=== PATIENT | female | born 1970 | race Caucasian/White ===

== ENCOUNTER 2018-09-26 12:14 | Inpatient (IN) | payer SELFPAY ==
[2018-09-26] MEDS ORDERED: ONDANSETRON 4 MG/2 ML VIAL IV PRN (13:59)
[2018-09-26] MEDS ORDERED: ACETAMINOPHEN 500 MG TAB PO PRN (13:59)
[2018-09-26 14:22] LABS: Absolute Monocytes 0.6 K/uL (0.1-1.3); Absolute Neutrophil 5.7 K/uL (1.8-8.0); Basophils % 0.5 % (0-1.3); Eosinophils % 0.6 % (0-4.4); Hematocrit 38.9 % (36.0-45.0); Lymphocytes % 24.1 % (15.3-44.8); MPV 7.9 fL (7.6-11.3); Monocytes % 7.4 % (3.3-12.3); Protime INR 1.11; RBC Red Blood Cell Count 4.19 M/uL (3.86-4.86)
[2018-09-26 14:35] LABS: Albumin 3.4 g/dL (3.4-5.0); Bilirubin Total 0.4 mg/dL (0.2-1.0); Potassium 3.8 mmol/L (3.5-5.1); Protein, Total 7.4 g/dL (6.4-8.2)
--- NOTE | 2018-09-26 14:38 | RAD REPORT ---
EXAM DESCRIPTION: RAD - Chest Pa And Lat (2 Views) - 09/26/2018 2:32 pm CLINICAL HISTORY: cough Chest pain. COMPARISON: No comparisons FINDINGS: The lungs are clear. The heart is normal in size. No displaced fractures. IMPRESSION: No acute or concerning finding suspected.
--- NOTE | 2018-09-26 14:42 | RAD REPORT ---
EXAM DESCRIPTION: CT - Stone Protocol - 09/26/2018 2:25 pm CLINICAL HISTORY: Flank pain. recurrent UTI, abd pain COMPARISON: No comparisons TECHNIQUE: Axial images were obtained without oral or IV contrast. Lack of contrast limits solid org an and vascular assessment. The [id number]-rl-[id number] spans the entirety of the system partially obscuring uppermost abdomen and lung bases. Coronal reformatted images were obtained and reviewed. All CT scans are performed using dose optimization technique as appropriate and may include automated exposure control or mA/KV adjustment according to patient size. FINDINGS: The lower lung beard are clear. Cholecystectomy clips. Imaged portions of the liver and spleen show no suspicious findings on non-contrast imaging. The panc reas and adrenal glands are normal. No pathologic lymphadenopathy in the abdomen or pelvis. No urinary tract stones or obstructive uropathy. No bowel obstruction, free air, free fluid or abscess. Normal appendix noted. No significant bony abnormality. IMPRESSION: No urinary tract stones or obstructive uropathy.
[2018-09-26] MEDS ORDERED: HYDROCODONE/APAP 7.5/325 MG TAB PO PRN (14:56)
[2018-09-26 15:16] LABS: Urine Appearance CLOUDY; Urine Bilirubin NEGATIVE (NEG); Urine Blood 1+ (NEG); Urine Color YELLOW; Urine Glucose NEGATIVE (NEG); Urine Protein NEGATIVE (NEG); Urine pH 7.5 (5.0-7.0)
[2018-09-26 15:18] LABS: Urine Microscopic Reflex ORDER UMIC
[2018-09-26 15:45] LABS: Urine Bacteria 20-50 /HPF (<20); Urine Culture Reflex Order REFLEXED; Urine Mucus 2+ /HPF (NONE SEEN)
[2018-09-26] MEDS ORDERED: INFLUENZA VACCINE (for 3y+) 0.5 ML DOSE IMVAC ONE (17:00)
[2018-09-26] MEDS: NA CHLORIDE 0.9% 1,000 ML IV SCH ×2 (17:15→23:19)
[2018-09-26] MEDS: CEFTRIAXONE/SWI 1gm 1 GM/10 ML SYR IV SCH (17:15)
--- NOTE | 2018-09-26 21:37 | EKG ---
Test Date: 2018-09-26 Test Time: 14:11:43 Parts Room Assistant: TAMARA MEASUREMENT RESULTS: Intervals: Rate: 58 TN: 122 QRSD: 86 QT: 430 QTc: 422 [place]: P: 67 TN: 122 QRS: 67 T: 55 INTERPRETIVE STATEMENTS: Sinus bradycardia Otherwise normal ECG Compared to ECG 12/27/2015 06:58:17 No significant changes Electronically Signed On 09-26-18 21:35:56 [employer]OLDER by Timur Rooney
--- NOTE | 2018-09-27 01:13 | HP ---
Date of Admission: 09/26/2018 Consultants: Dr. Siddiqi. Chief Complaint: Recurrent UTI, direct admission from Dr. Siddiqi's office. History Of Present Illness: The patient is a 47-year-old female with past medical history of seasonal allergies and recurrent UTIs with 2 episodes within the past couple of months, which failed outpatient treatment on Macrobid and then switched over to Bactrim. The patient has been on antibiotics for 13 days. The patient still reports dysuria, pain in the suprapubic region radiating to the left flank. The patient also reports some nausea, but no vomiting. Subjective fever and chills are also present. The patient's symptoms are constant, moderate, progressively worsening. The patient was started on control pills last week and her antibiotics were switched over by Dr. Monique. She was then referred to Urology due to recurrent UTIs and no relief. Dr. Siddiqi saw her in the office today and recommended admission due to her symptoms. The patient was directly admitted to the hospital. Past Medical History: Seasonal allergies. Past Surgical History: The patient had a cholecystectomy in the s. Allergies: NO KNOWN DRUG ALLERGIES. Medications: The patient takes dpat-fdg-[id number] Zyrtec, currently on Bactrim DS. Social History: The patient stopped smoking 3 years ago. Prior to that, smoked for about 15 years. Does not drink alcohol, very rarely if at all. Family History: Mother had cervical cancer at the age of 20, had heart attack at the age of 52, however survived the heart attack. Diabetes with hypertension also run in the family. Grandmother also had COPD and stroke. Review of Systems: An 11-point systems reviewed, negative except as per HPI. Physical Examination: Vital Signs: Temperature 97.5, heart rate 60, blood pressure 152/68, respirations 18, O2 98% on room air. General: Awake, alert, oriented x3, in some mild distress due to pain, ill- appearing female, morbidly obese, BMI 43. HEENT: Normocephalic, atraumatic. PERRLA, EOMI. Moist mucous membranes. Oropharynx is clear. Conjunctivae anicteric. Neck: Supple. No JVD. Trachea midline. CV: S1, S2. Regular rate and rhythm. Peripheral pulses present. Respiratory: Moving air well bilaterally. No wheezing or stridor. No use of accessory muscles. Gastrointestinal: Abdomen is soft. Tenderness to palpation of the suprapubic region and some minimal pain on the left CVA. Bowel sounds are positive. No masses. No rebound or guarding. Extremities: No clubbing, cyanosis, or edema. No calf tenderness. Neuro: Cranial nerves 2 through 12 intact grossly. No focal neurological deficit. Speech is normal. Strength is 5/5 in bilateral upper and lower extremities. Sensation intact to light touch. Skin: No rashes. Normal skin turgor. Psych: Mood is okay. Affect is full. Insight and judgment are good. Laboratory Data: WBC 8.5, H and H 12.7 and 38.9, platelets 354. INR 1.11. Sodium 140, potassium 3.8, chloride 108, CO2 27, BUN 9, creatinine 0.74, glucose 84, calcium 8.9, albumin 3.4. UA is pending. Imaging Studies: CT scan of the abdomen and pelvis shows no urinary tract stones or obstructive uropathy. Chest x-ray, personally reviewed, shows no acute or concerning findings suspected. Assessment And Plan: A 47-year-old female with: 1. Recurrent urinary tract infection, failed outpatient treatment. The patient was on Bactrim for the past 13 days. Prior to that was on Macrobid. We will continue on Rocephin and obtain urine cultures. The patient did drop off urine specimen for cultures from Dr. Kline We will consult Dr. Siddiqi. CT scan does not show any abnormalities. No stones are present. 2. Morbid obesity, body mass index 43, counseled. 3. Gastrointestinal and deep venous thrombosis prophylaxis with PPI and Lovenox. Plan: Admit the patient to Med-Surg, place as inpatient. Length of stay greater than 2 midnights. /ADENIKE Voice ID: [id number] GIBSON
[2018-09-27 05:39] LABS: Absolute Lymphocytes (CBC) 1.9 K/uL (0.7-4.9); Absolute Monocytes 0.6 K/uL (0.1-1.3); Absolute Neutrophil 4.5 K/uL (1.8-8.0); Basophils % 0.4 % (0-1.3); Eosinophils % 1.5 % (0-4.4); Hematocrit 34.6 % (36.0-45.0); Lymphocytes % 26.6 % (15.3-44.8); Monocytes % 8.3 % (3.3-12.3); RBC Red Blood Cell Count 3.71 M/uL (3.86-4.86)
[2018-09-27 06:06] LABS: ALT/SGPT 7 U/L (12-78); AST/SGOT 9 U/L (15-37); Albumin 2.8 g/dL (3.4-5.0); Alkaline Phosphatase 56 U/L (45-117); BUN Blood Urea Nitrogen 7 mg/dL (7-18); Bicarbonate 25 mmol/L (21-32); Bilirubin Total 0.4 mg/dL (0.2-1.0); Glucose Level 90 mg/dL (74-106); Sodium Level 140 mmol/L (136-145)
[2018-09-27] MEDS: CEFTRIAXONE/SWI 1gm 1 GM/10 ML SYR IV SCH (09:14)
[2018-09-27] MEDS: NA CHLORIDE 0.9% 1,000 ML IV SCH (10:00)
[2018-09-27] MEDS ORDERED: OXYBUTYNIN CHLORIDE 5 MG TAB PO SCH (13:00)
--- NOTE | 2018-09-27 17:48 | PN ---
Date of Progress Note: 09/27/2018 Subjective: The patient seen and examined. Chart reviewed and case discussed with RN. The patient states her flank pain has resolved. Still having some abdominal discomfort and dysuria. Medications: List reviewed. Physical Examination: Vital Signs: Temperature 98.3, heart rate 66, blood pressure 120/57, respirations 16, and O2 95% on room air. General: Awake, alert, oriented x3. Morbidly obese, ill-appearing female, in some mild distress. CV: S1 and S2. Regular rate and rhythm. Peripheral pulses present. Respiratory: Moving air well bilaterally. No wheezing or stridor. Gastrointestinal: Abdomen is soft. Mild tenderness to palpation in the suprapubic region. No guard ing or rigidity. No distention. Bowel sounds positive. Extremities: No clubbing, cyanosis, or edema. Neurologic: Nonfocal. Laboratory Data: Sodium 140, potassium 4, chloride 111, CO2 25, BUN 7, creatinine 0.58, glucose 90, calcium 7.9, albumin 2.8. WBC 7.1, H and H 11.4 and 34.6, platelets 284. Urine culture growing mixe d corinne. Urine culture from Dr. Siddiqi's office also growing mixed corinne at this time. It should be noted that the patient has been on antibiotics for almost 2 weeks. Assessment And Plan: A 47-year-old female with: 1.Recurrent urinary tract infection, failed outpatient treatment with Bactrim. We will continue on Rocephin. Urine cultures showing mixed corinne. CT scan did not elucidate any specific etiology for t he recurrent UTIs. Likely will need a cystoscopy. We will discuss further with Dr. Siddiqi. 2.Abdominal pain, suprapubic region, likely secondary to above, improving. 3.Morbid obesity, BMI of 43. Counseled. 4.Deep venous thrombosis prophylaxis with SCDs. No chemical anticoagulation due to possible procedu re. Plan: Continue pain control, IV fluids. We will add Ditropan to prevent spasms. SA/MODL Voice ID: [id number] Report ID: [id number]
--- NOTE | 2018-09-27 18:15 | CON ---
History Of Present Illness: A 47-year-old female who came with complaint from Dr. Monique's office of 2 months of recurrent infection. Every time she stops her antibiotics, infection is back. She h ad no urine cultures. She felt as another one is ongoing now and decided to go ahead and culture the patient, admit her for workup for failed outpatient management. Her urine culture has been done, no thing is growing. CT scan is done, no findings. I do not believe she has a UTI. We are going to se nd the patient home today and have her follow up next week for a cystoscopy. I am not really sure wh at is causing her abdominal pressure that she is complaining about. Her postvoid residual was normal in the office. Past Medical History: Seasonal allergies. Past Surgical History: Cholecystectomy in . Allergies: NO KNOWN DRUG ALLERGIES. Medications: Zyrtec over the counter and Bactrim. Social History: She stopped smoking 3 years ago. Prior to that she smoked for 15 years. Does not d rink any alcohol or really if at all. Family History: Mother had cancer at 20, heart attack at 52, survived. Diabetes and hypertension ru n in the family. Grandmother with COPD and stroke. Review of Systems: Ten-point review of systems otherwise negative. Physical Examination: The patient is afebrile, stable. General: Awake, alert, oriented x3, morbidly obese. HEENT: Atraumatic and normocephalic. Neck: Supple. Cardiovascular: S1 and S2. Respiratory: Clear. Gastrointestinal: Soft, nontender. Extremities: No clubbing. Neurologic: Normal. Skin: No rashes. Psychiatric: Okay. Laboratory Data: White count normal 8.5, H and H stable at 13 and 39, platelets 359. INR normal. E lectrolytes normal. Imaging study done showing no stones, no signs of infection. Assessment: Possible recurrent urinary tract infection, failed outpatient management. We will disch arge the patient home. Follow up outpatient for a cystoscopy. SIVAKUMAR/ADENIKE Voice ID: [id number] Report ID: [id number]
[2018-09-28] MEDS ORDERED: CETIRIZINE HCL 5 MG TABLET PO SCH (09:00)
[2018-09-28] MEDS ORDERED: NORETHINDRONE E ESTRADIOL IRON PO SCH (09:00)
--- NOTE | 2018-09-29 03:31 | DS ---
Date of Discharge: 09/27/2018 Accounting Generalist: Dr. Siddiqi. Procedures: None. Admitting Diagnoses: 1.Recurrent urinary tract infection with failed outpatient treatment. 2.Morbid obesity, BMI 43. Discharge Diagnoses: 1.Recurrent urinary tract infection with failed outpatient treatment. 2.Suprapubic abdominal pain, resolving. 3.Morbid obesity, BMI 43. Hospital Course: The patient is a 47-year-old female with past medical history of seasonal allergies , comes in with recurrent UTIs. The patient has been on Macrobid and Bactrim for 13 days and still h aving dysuria and symptoms with suprapubic abdominal pain. The patient was admitted directly from Dr Anuel Siddiqi's office for further evaluation and treatment. CT scan of the abdomen and pelvis was done, w hich did not show any stones or other abnormalities. Chest x-ray was clear. The patient denies any sexually transmitted diseases. No vaginal discharge. There is a possibility of pelvic inflammatory disease. However, has been seeing OB recently. The patient was seen by Dr. Siddiqi. Urine culture fr om Dr. Siddiqi's office on the day of admission showed 10,000-100,000 colony-forming units of mixed crista ra and urine that was repeated in the hospital showed less than 10,000 colony-forming units. The pat ient was given Rocephin. She had improvement in her symptoms. She remained afebrile. White count r emained stable. The patient was then cleared for discharge and was recommended to have outpatient cy stoscopy by Dr. Siddiqi. The patient was then discharged home in stable condition. Activity: As tolerated. Medications: As per medication reconciliation list. Diet: Calorie-restricted diet. Followup: Follow up with PCP in 2-3 days. Follow up with urologist, Dr. Siddiqi, in 2 weeks for cysto scopy. Return to ER for worsening condition. Physical Examination: For physical exam findings, please see progress note dictated on the day of discharge. Total time spent discharging the patient was 33 minutes. /ADENIKE Voice ID: [id number] Report ID: [id number]
== END 2018-09-27 17:43 | disposition home or self-care (01) | DRG 690 ==
LOC: 2ND 13:32
PROVIDERS: ADMIT Family Medicine; ATTEND Family Medicine
DX: N39.0 Urinary tract infection, site not specified (principal); Z68.41 Body mass index [BMI] 40.0-44.9, adult; E66.01 Morbid (severe) obesity due to excess calories; J30.2 Other seasonal allergic rhinitis; Z87.891 Personal history of nicotine dependence
CPT/HCPCS: 36415; 71046; 74176; 76377; 80053; 81003; 81015; 85025; 85610; 87086; 87088; 93005; 94760; G0008; J0696; J2405; J7030; Q2035